=== PATIENT | female | born 1960 | race Caucasian/White ===

== ENCOUNTER → 2016-09-21 | Outpatient (CLI) | payer OTHER ==
[2016-09-21 07:43] LABS: ALBUMIN 3.9 g/dL (3.4-5.0); ALBUMIN/GLOBULIN RATIO 1.1 (1.0-1.7); CREATININE 0.8 mg/dL (0.6-1.0); GFR 73.7; POTASSIUM 3.9 mmol/L (3.5-5.1); TOTAL BILIRUBIN 0.4 mg/dL (0.2-1.0); TOTAL PROTEIN 7.6 g/dL (6.4-8.2)
[2016-09-21 13:14] LABS: THYROID STIM HORMONE (TSH) 0.948 uIU/mL (0.358-3.740)
== END | disposition home or self-care (01) ==
LOC: LAB 07:04
PROVIDERS: ATTEND Family Medicine
DX: E03.9 Hypothyroidism, unspecified (principal); E78.00 Pure hypercholesterolemia, unspecified
CPT/HCPCS: 36415; 80053; 80061; 84443

== ENCOUNTER 2016-12-14 16:59 | Emergency (ER) | payer OTHER ==
[~2016-12-14] VITALS: Ht 180.3 cm; Wt 117.9 kg
[2016-12-14 16:59] VITALS: BP 106/61
[2016-12-14] MEDS ORDERED: HYDR-2758 PO (19:05)
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
--- NOTE | 2016-12-14 20:33 | RAD ---
Right lower extremity venous duplex study 12/14/2016 Clinical History: Right leg pain. Technique: Using a combination of real time ultrasound imaging and color-flow and pulse Doppler imaging techniques along with graded compression and augmentation, duplex evaluation of the deep venous system of the right lower extremity was performed. Multiple images were obtained. Findings: There is no sonographic evidence of deep venous thrombosis involving the visualized deep venous structures of right lower extremity. Note is made of a moderate sized suprapatellar right knee joint effusion. Impression: There is no sonographic evidence of deep venous thrombosis involving the visualized deep venous structures of the right lower extremity. Electronically signed by: Gerardo Jeffers MD (12/14/2016 8:30 PM) [facility]
--- NOTE | 2016-12-15 08:28 | RAD ---
Exam performed: 4 views right knee. History: Chronic knee pain. Date of service: 12/14/16. Comparison: X-ray right knee from 04/07/12 4 views right knee findings: There is mild narrowing of medial greater than lateral tibiofemoral with narrowing of patellofemoral joint with multiple osteophytic spurring. There is no acute fracture or dislocation. No soft tissue swelling or joint effusion seen. Impression: Degenerative arthrosis involving the medial tibiofemoral and patellofemoral joint.
== END 2016-12-14 20:47 | disposition home or self-care (01) ==
LOC: ER 16:59
DX: M25.561 Pain in right knee (principal); M19.90 Unspecified osteoarthritis, unspecified site; E03.9 Hypothyroidism, unspecified; G89.29 Other chronic pain; Z88.1 Allergy status to other antibiotic agents; Z88.2 Allergy status to sulfonamides
CPT/HCPCS: 73564; 93971; 99284-25

== ENCOUNTER 2018-10-17 05:49 | Emergency (ER) | payer OTHER ==
[~2018-10-17] VITALS: Ht 180.3 cm; Wt 130.2 kg
[~2018-10-17 05:49] MED LIST: HYDR-2155 PO
--- NOTE | 2018-10-17 06:03 | ED.ADGEN ---
Past History Past Medical History: Arthritis, Depression, Hypothyroid (ADALID PRINCE MD) Past Medical History: Arthritis, Depression, GERD, Hypothyroid (RC MOJICA MD) Past Surgical History: Cholecystectomy, Hysterectomy, Tonsillectomy, Tubal ligation (ADALID PRINCE MD) Past Surgical History: Cholecystectomy, Hysterectomy, Knee Replacement, Tonsillectomy, Tubal ligation (RC MOJICA MD) Alcohol Use: None Drug Use: None (ADALID PRINCE MD) Smoking: Non-smoker Alcohol Use: None Drug Use: None (RC MOJICA MD) Adult General Chief Complaint Chief Complaint Left knee pain (RC MOJICA MD) Chief Complaint ".. I ve got pain in this Lt. 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 Pt. getting undressed for exam. Pt. care transfer to Dr. Mojica for exam and disposition of pt. at shift changes. (ADALID PRINCE MD) HPI 58-year-old female presents emergency department with complaint of left knee pain for one week. The patient denies any recent fall or trauma. States that she has started to get sharp knee pains which feel to be in the middle of the joint that worsen with weightbearing and ambulation. Denies any associated swelling or redness. Notes that she has history of osteoarthritis requiring previous right total knee arthroplasty in February 2018. States that she is having symptoms that are similar in her left knee. Currently on Mobic daily. Has been taking Tylenol. States that the pain became worse, requiring her to take a Percocet tablet from a previous prescription for her other knee. States that this offers only temporary relief. Denies any lower extremity swelling, chest pain, or shortness of breath. (RC MOJICA MD) Review of Systems Review of Systems Constitutional: Denies fever or chills [] Eyes: Denies change in visual acuity, redness, or eye pain [] HENT: Denies nasal congestion or sore throat [] Respiratory: Denies cough or shortness of breath [] Cardiovascular: No additional information not addressed in HPI [] GI: Denies abdominal pain, nausea, vomiting, bloody stools or diarrhea [] : Denies dysuria or hematuria [] Musculoskeletal: Complaints of Lt knee pain. Integument: Denies rash or skin lesions [] Neurologic: Denies headache, focal weakness or sensory changes [] Endocrine: Denies polyuria or polydipsia [] All other systems were reviewed and found to be within normal limits, except as documented in this note. (ADALID PRINCE MD) Review of Systems Constitutional: No fever, fatigue, or weakness Musculoskeletal: Left knee pain, no swelling or myalgia Skin: No rash or wounds Neuro: No weakness or numbness (RC MOJICA MD) Family History Family History Non-contributory (ADALID PRINCE MD) Current Medications Current Medications See Nursing (ADALID PRINCE MD) Allergies Allergies Allergies Coded Allergies Type Severity Reaction Last Updated Verified Sulfa (Sulfonamide Antibiotics) Allergy Unknown 12/14/16 Yes levofloxacin Allergy Unknown 12/14/16 Yes (RC MOJICA MD) Physical Exam Physical Exam Constitutional: Moderate acute distress, non-toxic appearance. [] Exam per Dr. Mojica. (ADALID PRINCE MD) Physical Exam Constitutional: Well-developed, well-nourished, afebrile, no acute distress Musculoskeletal: Left knee with normal alignment, no soft tissue or joint swelling noted, tenderness to palpation along medial and lateral joint space, negative Dolly test, no pain with valgus or varus stressing Skin: Warm, dry, capillary refill less than 2 seconds Neuro: Alert, oriented �3, cranial nerves II through XII grossly intact, no gross motor or sensory deficits (RC MOJICA MD) Current Patient Data Vital Signs Vital Signs Date Time Temp Pulse Resp B/P (MAP) Pulse Ox O2 Delivery O2 Flow Rate FiO2 10/17/18 05:49 98.0 80 18 97 Room Air (RC MOJICA MD) Lab Results Not performed (RC MOJICA MD) EKG EKG [] (ADALID PRINCE MD) EKG Not performed (RC MOJICA MD) Radiology/Procedures Radiology/Procedures [] (ADALID PRINCE MD) Radiology/[place] [address] IMAGING REPORT Signed PATIENT: SYLVIA CRENSHAW ACCOUNT: [id number] : 1960 LOCATION: ER AGE: 58 SEX: F EXAM STATUS: REG ER ORD. PHYSICIAN: ADALID PRINCE MD REASON: Left knee pain PROCEDURE: KNEE BILAT 4V Three-view bilateral knee dated 10/17/2018. Comparison made to 12/14/2016. CLINICAL INDICATION: Knee pain. FINDINGS: 4 view left knee show normal bony alignment. No displaced fracture. Mild tricompartmental hypertrophic change with small marginal osteophytes. Possible small joint effusion. No loose body. 4 view of right knee show evidence of prior total knee arthroplasty. Femoral and tibial components are intact. No periprosthetic fracture or malalignment. No apparent joint effusion or loose body. IMPRESSION: 1. No acute radiographic abnormality. 2. Status post total knee arthroplasty in the right with no apparent complication. 3. Mild tricompartmental DJD on the left Electronically signed by: Emir Felder MD (10/17/2018 6:31 AM) [id number] DICTATED AND SIGNED BY: EMIR FELDER MD DATE: 10/17/18 0631 CC: SHY VALENCIA MD; ADALID PRINCE MD; RC MOJICA MD ~ (RC MOJICA MD) Course & Med Decision Making Course & Med Decision Making Pertinent Labs and Imaging studies reviewed. (See chart for details). Pt. endorse to Dr. Mojica at shift. change. [] (ADALID PRINCE MD) Course & Med Decision Making I took over care of patient at [address] Prince. X-rays negative for fracture or malalignment. X-rays do show significant tricompartmental disease of the left knee consistent with osteoarthritis. Patient provided with small prescription of hydrocodone to help with breakthrough pain. Advised follow-up with Dr. Knapp of orthopedic surgery in the next 5 days for reevaluation. Advised return to emergency department for any worsening symptoms. Patient was understanding and agreement with treatment plan. (RC MOJICA MD) Final Impression Final Impression 1. Complaints of Lt Knee pain-[] (ADALID PRINCE MD) Final Impression Osteoarthritis of left knee (RC MOJICA MD) Dragon Disclaimer Dragon Disclaimer This electronic medical record was generated, in whole or in part, using a voice recognition dictation system. (ADALID PRINCE MD) Departure Departure: Impression: Primary Impression: Osteoarthritis of left knee Qualified Codes: M17.12 - Unilateral primary osteoarthritis, left knee Disposition: HOME, SELF-CARE Condition: STABLE Referrals: Adalid Knapp MD Patient Instructions: Osteoarthritis Additional Instructions: Follow-up with Dr. Knapp in the next 5 days for further evaluation of your left knee pain. Return to the emergency department for any worsening symptoms. Scripts Hydrocodone Bit/Acetaminophen (NORCO 5-325 TABLET) 1 Each Tablet 1 TAB PO Q6HRS PRN for PAIN, #20 TAB Prov: RC MOJICA MD 10/17/18 Dragon Disclaimer This chart was dictated in whole or in part using Voice Recognition software in a busy, high-work load, and often noisy Emergency Department environment. It may contain unintended and wholly unrecognized errors or omissions. (ADALID PRINCE MD) ADALID PRINCE MD Oct 17, 2018 06:03 RC MOJICA MD Oct 17, 2018 06:43
--- NOTE | 2018-10-17 06:34 | RAD ---
Three-view bilateral knee dated 10/17/2018. Comparison made to 12/14/2016. CLINICAL INDICATION: Knee pain. FINDINGS: 4 view left knee show normal bony alignment. No displaced fracture. Mild tricompartmental hypertrophic change with small marginal osteophytes. Possible small joint effusion. No loose body. 4 view of right knee show evidence of prior total knee arthroplasty. Femoral and tibial components are intact. No periprosthetic fracture or malalignment. No apparent joint effusion or loose body. IMPRESSION: 1. No acute radiographic abnormality. 2. Status post total knee arthroplasty in the right with no apparent complication. 3. Mild tricompartmental DJD on the left Electronically signed by: Emir Felder MD (10/17/2018 6:31 AM) [facility]
[2018-10-17] MEDS ORDERED: HYDR-3165 PO (06:41)
[2018-10-17 06:45] VITALS: BP 119/71
== END 2018-10-17 06:45 | disposition home or self-care (01) ==
LOC: ER 05:49
DX: M17.12 Unilateral primary osteoarthritis, left knee (principal); E03.9 Hypothyroidism, unspecified; K21.9 Gastro-esophageal reflux disease without esophagitis; Z96.651 Presence of right artificial knee joint; Z88.2 Allergy status to sulfonamides; Z88.1 Allergy status to other antibiotic agents
CPT/HCPCS: 73564; 99284

== ENCOUNTER → 2019-04-07 | Outpatient (CLI) | payer OTHER ==
[~2019-04-07] MED LIST changes: +HYDR-3165 PO
--- NOTE | 2019-04-07 12:32 | RAD ---
EXAM: BILATERAL 3-D DIGITAL DIAGNOSTIC MAMMOGRAPHY. HISTORY: Bloody right nipple discharge. TECHNIQUE: Bilateral full field digital images were obtained in CC and MLO projections with tomosynthesis. Computer-aided detection was applied. COMPARISON: 08/07/2015, 02/07/2016, 04/03/2019. COMPOSITION: B. There are scattered areas of fibroglandular density. FINDINGS: No mass or dilated ducts are appreciable at the right nipple/areolar complex by mammography. There are no associated suspicious calcifications. There is a new benign oil cyst superior to the right nipple. Elsewhere, small nodules laterally are stable and are consistent with intraparenchymal lymph nodes. There is no suspicious finding on the left. BI-RADS CATEGORY 2: Benign. RECOMMENDATION: Clinical follow-up/management is recommended. 1. No mammographic or sonographic correlate for bloody right nipple discharge is identified. This negative result should not delay ongoing management of a clinically suspicious finding. Surgical consultation is suggested. Breast MRI could further assess the right nipple/areolar complex if the diagnosis remains unclear. 2. If bloody right nipple discharge is otherwise clinically resolved, screening mammography is recommended in one year. Electronically signed by: Yg Parker MD (04/07/2019 12:29 PM) [id number]
== END | disposition home or self-care (01) ==
LOC: MAMMO 10:18
PROVIDERS: ATTEND Family Medicine
DX: N64.52 Nipple discharge (principal)
CPT/HCPCS: 77066; G0279; 77062

== ENCOUNTER 2019-10-26 08:26 | Emergency (ER) | payer BC, OTHER ==
[~2019-10-26] VITALS: Ht 179.1 cm; Wt 117.5 kg
[2019-10-26] MEDS ORDERED: IV NORMAL SALINE 1,000ML 1,000 ML IV ONE (09:15)
[2019-10-26] MEDS ORDERED: ASPIRIN 325 MG TABLET PO ONE (09:30)
[2019-10-26] MEDS ORDERED: ORPHENADRINE CITRATE 60 MG/2 ML VIAL. IV ONE (09:30)
[2019-10-26 09:37] LABS: BASO % 1 % (0-3); EOS # 0.2 x10^3/uL (0.0-0.7); EOS % 2 % (0-3); HEMATOCRIT 40.6 % (36.0-47.0); HEMOGLOBIN 13.6 g/dL (12.0-15.5); LYMPH # 1.5 x10^3/uL (1.0-4.8); LYMPH % 24 % (24-48); MEAN CORPUSCULAR HEMOGLOBIN 30 pg (25-35); MEAN CORPUSCULAR HGB CONC 34 g/dL (31-37); MEAN CORPUSCULAR VOLUME 90 fL (79-100); MONO # 0.6 x10^3/uL (0.0-1.1); MONO % 9 % (0-9); NEUT % 64 % (31-73); PLATELET COUNT 171 x10^3/uL (140-400); RED CELL DISTRIBUTION WIDTH 13.5 % (11.5-14.5); WHITE BLOOD COUNT 6.2 x10^3/uL (4.0-11.0)
[2019-10-26 09:49] LABS: CALCIUM 9.3 mg/dL (8.5-10.1); GFR 56.4
[2019-10-26 10:02] LABS: ALBUMIN 3.9 g/dL (3.4-5.0); ALBUMIN/GLOBULIN RATIO 1.1 (1.0-1.7); MAGNESIUM 1.9 mg/dL (1.8-2.4); TOTAL BILIRUBIN 0.4 mg/dL (0.2-1.0); TOTAL PROTEIN 7.4 g/dL (6.4-8.2)
--- NOTE | 2019-10-26 10:27 | PHYS DOC ---
Past History Past Medical History: Arthritis, Depression, GERD, High Cholesterol, Hypothyroid Past Surgical History: Cholecystectomy, Hysterectomy, Knee Replacement, Tonsillectomy, Tubal ligation Smoking: Non-smoker Alcohol Use: None Drug Use: None General Adult EDM: Chief Complaint: Upper left back pain HPI: HPI: Ms. Christy is a 59-year-old female presenting to the ED with upper left back pain. Pain started this morning at 5 AM abruptly when she woke up. Patient describes pain as a dull and deep ache mostly localized to the left scapular region and rates current pain at a 6 out of 10. Pain this morning was rated at an 8 out of 10 but Tylenol taken at 7:00 this morning helped. Patient states that movement of upper extremity does not make pain worse. Patient denies neck pain, chest pain, shortness of breath, and numbness/tingling in upper extremity. Patient has never had this type of pain before and has a history of chronic low back pain and depression. Review of Systems: Review of Systems: Constitutional: Denies fever or chills Eyes: Denies change in visual acuity, redness, or eye pain HENT: Denies nasal congestion or sore throat Respiratory: Denies cough or shortness of breath Cardiovascular: Denies chest pain or palpitations GI: Denies abdominal pain, nausea, vomiting, or diarrhea : Denies dysuria or hematuria Musculoskeletal: Reports left upper back pain and shoulder pain Integument: Denies rash or skin lesions Neurologic: Denies headache, focal weakness or sensory changes Complete systems were reviewed and found to be within normal limits, except as documented in this note. Heart Score: HEART Score for Chest Pain: HEART Score for Chest Pain Response (Comments) Value History Slighlty/Non-Suspicious 0 ECG Normal 0 Age >45 - < 65 1 Risk Factors >3 Risk Factors or Hx CAD 2 Troponin < Normal Limit 0 Total 3 Family History: Family History: History of heart disease in parents Current Medications: Current Meds: Current Medications Medications (Trade) Dose Ordered Sig/Tanmay Start Time Stop Time Status Last Admin Dose Admin Aspirin (Mario Alberto Aspirin) 325 mg 1X ONCE 10/26/19 09:15 10/26/19 09:16 UNV Orphenadrine Citrate (Norflex) 60 mg 1X ONCE 10/26/19 09:15 10/26/19 09:16 UNV Sodium Chloride 1,000 ml @ 1,000 mls/hr 1X ONCE 10/26/19 09:15 10/26/19 10:14 UNV Allergies: Allergies: Allergies Coded Allergies Type Severity Reaction Last Updated Verified Sulfa (Sulfonamide Antibiotics) Allergy Unknown 10/26/19 Yes levofloxacin Allergy Unknown 10/26/19 Yes Uncoded Allergies Type Severity Reaction Last Updated Verified DRINKING ALCOHOL Allergy Unknown 10/26/19 Physical Exam: PE: Constitutional: Well developed, well nourished, no acute distress, non-toxic appearance HENT: Normocephalic, atraumatic Eyes: PERRL, EOMI, conjunctiva normal, no discharge Neck: Normal range of motion, no tenderness, supple Lungs & Thorax: Normal chest rise observed, no respiratory distress Abdomen: Soft, no tenderness Skin: Warm, dry, no erythema, no rash Back: Tenderness to palpation at upper left thoracic area. Diffuse tenderness to palpation to left scapula. Location of pain corresponds to first contact point of patents back to bed when patient is supine. Extremities: No tenderness, ROM intact, no edema Neurologic: Alert and oriented X 3, normal motor function, normal sensory function, no focal deficits noted Psychologic: Affect normal, judgment normal Current Patient Data: Vital Signs: Vital Signs Date Time Temp Pulse Resp B/P (MAP) Pulse Ox O2 Delivery O2 Flow Rate FiO2 10/26/19 08:30 98.2 80 15 136/79 (98) 99 Room Air EKG: EK10/26/2019 @ 09:, heart rate 68 bpm normal sinus rhythm QRS: 80 ms, QT: 378 ms, QTc 402 ms Radiology/Procedures: Radiology/Procedures: PROCEDURE: CT ANGIOGRAPHY CHEST EXAM: CT ANGIOGRAPHY OF THE CHEST WITH AND WITHOUT CONTRAST. HISTORY: Back pain, elevated d-dimer. TECHNIQUE: Computed tomographic angiography of the chest was performed before and after the intravenous administration of iodinated contrast. 3-D maximum intensity projections were also performed. One or more of the following individualized dose reduction techniques were utilized for this examination: 1. Automated exposure control. 2. Adjustment of the mA and/or kV according to patient size. 3. Use of iterative reconstruction technique. COMPARISON: None. FINDINGS: Images of the upper abdomen reveal changes of cholecystectomy. Bone windows reveal no suspicious lesions. No pulmonary emboli are identified. There is no aortic dissection or aneurysm. There are no pathologically enlarged mediastinal or axillary lymph nodes. There is no pleural or pericardial effusion. The heart is not enlarged. There are mild atherosclerotic calcifications of the coronary arteries. There is mild to moderate centrilobular and paraseptal emphysema in the apices. There is mild bronchiectasis and scarring inferiorly in the right middle lobe and lingula. A 2 mm pleural-based nodule in the right middle lobe on image 86 is likely benign at this small size. IMPRESSION: 1. No pulmonary embolism. 2. Mild to moderate centrilobular and paraseptal emphysema. Electronically signed by: Yg Parker MD (10/26/2019 10:52 AM) [id number] Course & Med Decision Making: Course & Med Decision Making Pertinent Labs and imaging reviewed. (See chart for details) Ms. Christy is a 49-year-old obese female presenting with upper left back pain/scapular pain. This morning pain was rated at 8 out of 10, she treated pain with Tylenol bring the pain down to 6 out of 10. Pain was not positional and was not exacerbated by any movement of the upper extremities or neck. Patient denies any chest pain or shortness of breath. Due to the atypical pain presentation, medical history of hyperlipidemia, and family history of heart disease; ECG, troponins, CBC, BMP, and coagulation studies were ordered. Pertinent lab results show elevated d-dimer and negative troponin. ECG shows regular rate and normal sinus rhythm. Differential diagnosis for current pain presentation is muscle strain, myofascial pain syndrome. CTA without acute process. HEART score 3. Patient stable for discharge home with outpatient follow-up with PCP. Discussed findings and plan with patient, who acknowledges understanding and agreement. Hardeep Disclaimer: Hardeep Disclaimer: This electronic medical record was generated, in whole or in part, using a voice recognition dictation system. Departure Departure: Impression: Primary Impression: Acute thoracic back pain Qualified Codes: M54.6 - Pain in thoracic spine Disposition: HOME/RESIDENCE PRIOR TO ADM Condition: STABLE Referrals: SHY VALENCIA MD (PCP) TYRON HO MD Patient Instructions: Shoulder Pain, [id number], Thoracic Strain, [id number] Scripts Hydrocodone Bit/Acetaminophen (NORCO 5-325 TABLET) 1 Each Tablet 0.5-1 TAB PO Q6HRS PRN for PAIN, #10 TAB Prov: MICAELA ZAMAN DO 10/26/19 Orphenadrine Citrate (ORPHENADRINE CITRATE) 100 Mg Tablet.er 1 TAB PO BID PRN for MUSCLE PAIN, #14 TAB 0 Refills Prov: MICAELA ZAMAN DO 10/26/19 Justification of Admission: Justification of Admission: Justification of Admission Dx: N/A MICAELA ZAMAN DO Oct 26, 2019 10:27
[2019-10-26] MEDS ORDERED: IOHEXOL 350 MG/ML 100 ML VIAL. IV ONE (10:45)
--- NOTE | 2019-10-26 10:55 | RAD ---
EXAM: CT ANGIOGRAPHY OF THE CHEST WITH AND WITHOUT CONTRAST. HISTORY: Back pain, elevated d-dimer. TECHNIQUE: Computed tomographic angiography of the chest was performed before and after the intravenous administration of iodinated contrast. 3-D maximum intensity projections were also performed. One or more of the following individualized dose reduction techniques were utilized for this examination: 1. Automated exposure control. 2. Adjustment of the mA and/or kV according to patient size. 3. Use of iterative reconstruction technique. COMPARISON: None. FINDINGS: Images of the upper abdomen reveal changes of cholecystectomy. Bone windows reveal no suspicious lesions. No pulmonary emboli are identified. There is no aortic dissection or aneurysm. There are no pathologically enlarged mediastinal or axillary lymph nodes. There is no pleural or pericardial effusion. The heart is not enlarged. There are mild atherosclerotic calcifications of the coronary arteries. There is mild to moderate centrilobular and paraseptal emphysema in the apices. There is mild bronchiectasis and scarring inferiorly in the right middle lobe and lingula. A 2 mm pleural-based nodule in the right middle lobe on image 86 is likely benign at this small size. IMPRESSION: 1. No pulmonary embolism. 2. Mild to moderate centrilobular and paraseptal emphysema. Electronically signed by: Yg Parker MD (10/26/2019 10:52 AM) [id number]
[2019-10-26] MEDS ORDERED: ORPH-16 PO (11:01)
[2019-10-26] MEDS ORDERED: HYDR-3165 PO (11:09)
[2019-10-26 11:11] VITALS: BP 131/75
[2019-10-26] MEDS ORDERED: HYDROcodone/APAP 5/325MG 1 TAB TABLET PO ONE (11:15)
--- NOTE | 2019-10-26 11:25 | EKG ---
[address] [id number] Test Date: 2019-10-26 Test Time: 09:22:30 Pat Name: SYLVIA CRENSHAW Department: Room: Gender: F Fitting Room Associate: HAN : 1960 Requested By: MICAELA ZAMAN Order Number: [id number] Reading MD: Measurements Intervals Fried[place] Rate: 68 P: 52 VA: 196 QRS: 29 QRSD: 80 T: 66 QT: 378 QTc: 402 Interpretive Statements SINUS RHYTHM T ABNORMALITY IN HIGH LATERAL LEADS ABNORMAL ECG RI6.02 No previous ECG available for comparison
== END 2019-10-26 11:19 | disposition home or self-care (01) ==
LOC: ER 08:26
DX: M54.6 Pain in thoracic spine (principal); M25.512 Pain in left shoulder; R11.0 Nausea; G89.29 Other chronic pain; M54.5 Low back pain; M19.90 Unspecified osteoarthritis, unspecified site; F32.9 Major depressive disorder, single episode, unspecified; K21.9 Gastro-esophageal reflux disease without esophagitis; E03.9 Hypothyroidism, unspecified; Z90.49 Acquired absence of other specified parts of digestive tract; Z90.710 Acquired absence of both cervix and uterus; Z98.51 Tubal ligation status; Z88.2 Allergy status to sulfonamides; Z88.1 Allergy status to other antibiotic agents
CPT/HCPCS: 36415; 71275; 80053; 82553; 83690; 83735; 83880; 84484; 85025; 85379; 85610; 85730; 93005; 96361; 96374; 99285; J2360; J7030; Q9967

== ENCOUNTER → 2020-05-17 | Outpatient (CLI) | payer BC ==
[~2020-05-17] MED LIST changes: +ORPH-16 PO
--- NOTE | 2020-05-17 14:18 | RAD ---
EXAM: Bilateral digital screening mammogram with tomosynthesis. HISTORY: 60-year-old female presents for screening mammography. TECHNIQUE: Full-field digital craniocaudal and mediolateral oblique 2D and 3D tomosynthesis images of both breasts are obtained for evaluation. Computer aided detection was applied. COMPARISON: 04/07/2019 BREAST PARENCHYMAL DENSITY: Level B - Scattered fibroglandular densities. FINDINGS: There is no new suspicious mass, microcalcification or region of architectural distortion. There are multiple stable small circumscribed nodular densities within both breasts. The stability, a ppearance mammographic and multiplicity of these lesion favors benign etiology such as cysts. IMPRESSION: BI-RADS Category 2: Benign finding(s). RECOMMENDATION: Annual mammography is recommended. If your mammogram demonstrates that you have dense breast tissue, which could hide abnormalities, and if you have other risk factors for breast cancer that have been identified, you might benefit from s upplemental screening tests that may be suggested by your ordering physician. Dense breast tissue, i n and of itself, is a relatively common condition. This information is not provided to cause undue c oncern, but rather to raise your awareness and to promote discussion with your physician regarding th e presence of other risk factors, in addition to dense breast tissue. A report of your mammography re sults will be sent to you and your physician. You should contact your physician if you have any ques tions or concerns regarding this report. Mammography is a sensitive method for finding small breast cancers, but it does not detect them all a nd is not a substitute for careful clinical examination. A negative mammogram does not negate a clin ically suspicious finding and should not result in delay in biopsying a clinically suspicious abnorma lity. PQRS compliance statement - Patient information was entered into a reminder system with a target due date for the next mammogram. "Our facility is accredited by the [employer] Mammography [employer]." Electronically signed by: Abigail Nielsen MD (05/17/2020 2:16 PM) [id number]
== END ==
LOC: MAMMO 11:31
PROVIDERS: ATTEND Family Medicine
DX: Z12.31 Encounter for screening mammogram for malignant neoplasm of breast (principal)
CPT/HCPCS: 77063; 77067